=== PATIENT | male | born 1985 | race African-American/Black ===

== ENCOUNTER 2022-03-21 01:43 | Emergency (ER) | payer MEDICAID ==
[~2022-03-21] VITALS: Ht 185.4 cm; Wt 89.0 kg
[2022-03-21 03:45] LABS: CLARITY URINE CLEAR (CLEAR); COLOR URINE YELLOW (YELLOW); KETONES URINE 2+ (NEGATIVE); LEUKOCYTE ESTERASE URINE NEGATIVE (NEGATIVE); NITRITE URINE NEGATIVE (NEGATIVE); OCCULT BLOOD URINE NEGATIVE (NEGATIVE); PH URINE 5.5 (4.5-8.0); PROTEIN URINE TRACE (NEGATIVE); SPECIFIC GRAVITY URINE 1.025 (1.005-1.030)
[2022-03-21 03:52] LABS: HEMATOCRIT. 41.2 % (42.0-52.0); HEMOGLOBIN. 13.6 g/dL (14.0-18.0); MEAN CORPUSCULAR HEMOGLOBIN 28.3 pg (28.0-32.0); MEAN CORPUSCULAR VOLUME 85.8 fL (80.0-94.0); MEAN PLATELET VOLUME 7.9 fl (7.4-10.4); PLATELET 171 x1000/uL (130-400); RED CELL DISTRIBUTION WIDTH 16.4 % (11.6-14.6)
[2022-03-21 03:53] LABS: CHLORIDE 103 mEq/L (98-107)
[2022-03-21 04:02] LABS: *AMPHETAMINES SCREEN URINE PRESUMTIVE POSITIVE (NEGATIVE); *BARBITURATES SCREEN URINE NEGATIVE (NEGATIVE); *BENZODIAZEPINES SCREEN URINE NEGATIVE (NEGATIVE); *COCAINE SCREEN URINE NEGATIVE (NEGATIVE); CANNABINOID URINE SCREEN PRESUMTIVE POSITIVE (NEGATIVE); METHADONE URINE SCREEN NEGATIVE (NEGATIVE); OPIATES URINE SCREEN NEGATIVE (NEGATIVE); PHENCYCLIDINE URINE SCREEN NEGATIVE (NEGATIVE)
[2022-03-21 04:03] LABS: ETHANOL BLOOD < 10 mg/dL
[2022-03-21 05:23] LABS: ATYPICAL LYMPHOCYTES 1
[2022-03-21 05:24] LABS: PLATELET ESTIMATE NORMAL
[2022-03-21] MEDS ORDERED: FLUOXETINE HCL 10 MG CAPSULE PO SCH (10:15)
[2022-03-22] MEDS: ZIPRASIDONE HCL 20MG CAPSULE PO SCH ×2 (10:37→17:36)
[2022-03-22] MEDS: FLUOXETINE HCL 10 MG CAPSULE PO SCH (10:38)
[2022-03-23 11:45] VITALS: BP 118/57
[2022-03-23] MEDS: FLUOXETINE HCL 10 MG CAPSULE PO SCH (12:37)
[2022-03-23] MEDS: ZIPRASIDONE HCL 20MG CAPSULE PO SCH (12:37)
== END 2022-03-23 12:58 ==
LOC: ER 01:43
DX: R45.851 Suicidal ideations (principal); Z20.822 Contact with and (suspected) exposure to COVID-19
CPT/HCPCS: 36415; 80053; 80305; 80307; 80320; 80329; 81003; 85025; 99285; C9803; U0003; U0005; G0480